=== PATIENT | female | born 1950 | race Caucasian/White ===

== ENCOUNTER 2017-03-18 16:19 | Emergency (ER) | payer OTHER ==
[~2017-03-18] VITALS: Ht 152.4 cm; Wt 53.5 kg
[~2017-03-18 16:19] MED LIST: PREVACID30 MG PO
== END 2017-03-18 20:40 | disposition home or self-care (01) ==
LOC: ER 16:19
DX: S66.812A Strain of other specified muscles, fascia and tendons at wrist and hand level, left hand, initial encounter (principal); S49.92XA Unspecified injury of left shoulder and upper arm, initial encounter; M12.512 Traumatic arthropathy, left shoulder; M12.532 Traumatic arthropathy, left wrist; W18.39XA Other fall on same level, initial encounter; Y93.89 Activity, other specified; Y92.018 Other place in single-family (private) house as the place of occurrence of the external cause; Y99.8 Other external cause status

== ENCOUNTER → 2018-08-04 | Emergency (ER) | payer OTHER ==
[~2018-08-04] VITALS: Ht 152.4 cm; Wt 56.7 kg
== END | disposition home or self-care (01) ==
LOC: ER 17:29
DX: B34.9 Viral infection, unspecified (principal); M54.89 Other dorsalgia